=== PATIENT | male | born 1990 | race Caucasian/White ===

== ENCOUNTER 2021-12-11 00:44 | Emergency (ER) | payer SELFPAY ==
[2021-12-11 01:11] LABS: BASOPHIL 0.6 % (0-2); EOSINOPHIL 5.6 % (0-5); HCT 39.3 % (42.0-52.0); HGB 13.7 g/dl (13.2-18.0); LYMPHOCYTE 36.5 % (15-48); MCH 31.9 pg (25.0-31.0); MCHC 34.9 g/dL (32.0-36.0); MCV 91.4 fL (78.0-100.0); MONOCYTE 6.8 % (0-12); MPV 9.1 fL (6.0-9.5); NEUTROPHIL 50.1 % (41-80); NRBC 0; PLT 133 K/uL (150-400); RDW 12.4 % (11.5-14.0); WBC 5.3 K/uL (4.0-10.5)
[2021-12-11 01:26] LABS: ACETAMINOPHEN (TYLENOL) < 2.0 ug/mL (10.0-30.0); ALBUMIN 3.8 g/dL (3.4-5.0); ALKALINE PHOSHATASE 51 U/L (46-116); ALT 22 U/L (16-63); AST 24 U/L (15-37); BILIRUBIN - TOTAL 0.3 mg/dL (0.2-1.0); BUN 4 mg/dL (7-18); BUN/CREAT RATIO (CALC) 6.2 RATIO; CHLORIDE 101 mmol/L (98-107); CO2 (BICARBONATE) 28 mmol/L (21-32); CREATININE 0.64 mg/dL (0.67-1.17); GLUCOSE 97 mg/dL (74-106); POTASSIUM 3.7 mmol/L (3.5-5.1); TOTAL PROTEIN 6.8 g/dL (6.4-8.2)
[2021-12-11 04:38] LABS: AMPHETAMINES NEGATIVE (NEGATIVE); BARBITURATES NEGATIVE (NEGATIVE); ECSTASY (MDMA) NEGATIVE (NEGATIVE); MARIJUANA (THC) POSITIVE (NEGATIVE); METHADONE NEGATIVE (NEGATIVE); OPIATES NEGATIVE (NEGATIVE)
[2021-12-11 04:39] LABS: OXYCODONE NEGATIVE (NEGATIVE)
[2021-12-11 08:05] LABS: CORONAVIRUS 2019 SARS-COV-2 NEGATIVE (NEGATIVE); INFLUENZA A NAA NEGATIVE (NEGATIVE)
== END 2021-12-11 12:30 | disposition other institution (70) ==
LOC: FER 00:44
PROVIDERS: Internal Medicine
DX: T43.592A Poisoning by other antipsychotics and neuroleptics, intentional self-harm, initial encounter (principal); F10.129 Alcohol abuse with intoxication, unspecified; Z20.822 Contact with and (suspected) exposure to COVID-19; Z28.310 Unvaccinated for COVID-19; Y90.6 Blood alcohol level of 120-199 mg/100 ml
CPT/HCPCS: 36415; 80053; 80305; 85025; 93005; G0480; J7030; U0002